=== PATIENT | male | born 2000 | race Caucasian/White ===

== ENCOUNTER 2021-08-05 06:30 | Emergency (ER) | payer SELFPAY ==
[~2021-08-05] VITALS: Ht 180.3 cm; Wt 81.6 kg
--- NOTE | 2021-08-05 06:30 | NUR ---
PT BIB [facility], PREBOOK
[2021-08-05 06:33] VITALS: BP 158/90
--- NOTE | 2021-08-05 06:33 | NUR ---
Dr. Gaytan examining patient.
[2021-08-05 06:41] VITALS: BP 158/90
--- NOTE | 2021-08-05 06:41 | NUR ---
Patient discharged with v/s stable. Written and verbal after care instructions given and explained. Patient verbalized understanding. Ambulatory with steady gait. All questions addressed prior to discharge. Advised to follow up with PMD.
== END 2021-08-05 06:41 ==
LOC: MED 06:30
DX: S00.81XA Abrasion of other part of head, initial encounter (principal); Z00.01 Encounter for general adult medical examination with abnormal findings; V89.2XXA Person injured in unspecified motor-vehicle accident, traffic, initial encounter; Y93.89 Activity, other specified; Y92.410 Unspecified street and highway as the place of occurrence of the external cause; Y99.8 Other external cause status
CPT/HCPCS: 99283